=== PATIENT | male | born 1990 | race Caucasian/White ===

== ENCOUNTER 2020-06-21 07:49 | Emergency (ER) | payer SELFPAY ==
[2020-06-21 08:16] LABS: #Eosinphils 0.1 thou/uL (0.0-0.7); #Lymphocytes 0.9 thou/uL (1.20-3.40); #Monocytes 0.7 thou/uL (0.11-0.59); %Eosinophils 0.6 % (0.0-10.0); %Lymphocytes 6.5 % (21.0-51.0); %Monocytes 4.8 % (0.0-10.0); %Neutrophils 88.1 % (42.0-75.0); Hemoglobin 17.2 g/dL (14.0-18.0); Mean Corpuscular HGB CONC 32.3 g/dL (32.0-36.0); Mean Corpuscular Hemoglobin 30.8 pg (27.0-31.0); Mean Corpuscular Volume 95.4 fL (78.0-98.0); Mean Platelet Volume 6.6 fL (7.4-10.4); Platelet Count 316 thou/uL (130-400); RBC Distribution Width 11.5 % (11.5-14.5); Red Blood Cell (RBC) Count 5.59 mill/uL (4.70-6.10); White Blood Cell (WBC) Count 13.6 thou/uL (4.8-10.8)
[2020-06-21] MEDS ORDERED: Ketorolac Tromethamine 30 MG/ML VIAL ONE (08:37)
[2020-06-21] MEDS ORDERED: Dexamethasone 10 MG/ML VIAL ONE (08:37)
[2020-06-21 08:45] LABS: ALT (SGPT) 29 U/L (8-55); AST (SGOT) 27 U/L (5-34); Albumin 4.4 g/dL (3.5-5.0); Alkaline Phosphatase 125 U/L (40-110); Anion Gap 13 mmol/L (10-20); BUN (Urea Nitrogen) 9 mg/dL (8.9-20.6); Bilirubin, Total 1.1 mg/dL (0.2-1.2); Calc. Creatinine Clearance 0 mL/min (70-130); Calcium 9.5 mg/dL (7.8-10.44); Carbon Dioxide 26 mmol/L (22-29); Chloride 100 mmol/L (98-107); Estimated GFR-MDRD Greater than 90; Globulin 2.9 g/dL (2.4-3.5); Glucose 137 mg/dL (70-105); Potassium 4.1 mmol/L (3.5-5.1); Protein, Total 7.3 g/dL (6.0-8.3); Sodium 135 mmol/L (136-145)
[2020-06-21] MEDS ORDERED: cefTRIAXone\\ROCEPHIN 1 GM VIAL ONE (09:08)
--- NOTE | 2020-06-21 09:10 | CT ---
EXAM: CT neck with contrast HISTORY: Neck mass COMPARISON: None TECHNIQUE: Multiple contiguous axial images were obtained and a CT of the neck with contrast. Sagitta l and coronal reformats were performed. FINDINGS: There is bilateral adenoid and palatine tonsillar hypertrophy. There is a 1.8 cm left palatine tonsil lar fluid collection. No prevertebral soft tissue swelling or fluid collection is seen. Multiple reactive bilateral mildly enlarged lymph nodes are seen. The salivary glands are symmetric without focal abnormality. The thyroid is unremarkable. No osseous abnormality is seen in the cervical spine. The visualized intracranial structures are unremarkable. The lung apices are unremarkable. IMPRESSION: Left palatine tonsillar/peritonsillar abscess.
[2020-06-21] MEDS ORDERED: Lidocaine 1% w/Epinephrine 1:100K 20 ML VIAL ONE (09:16)
[2020-06-21] MEDS ORDERED: Iopamidol-370 76% 500 ML 1 ML ONE (11:32)
== END 2020-06-21 09:46 | disposition home or self-care (01) ==
LOC: ERS 07:49
DX: J36 Peritonsillar abscess (principal); F41.9 Anxiety disorder, unspecified; F31.9 Bipolar disorder, unspecified; F17.210 Nicotine dependence, cigarettes, uncomplicated
CPT/HCPCS: 36415; 42700; 70491; 80053; 85025; 87430; 96361; 96365; 96375; J0696; J1100; J1885; Q9967

== ENCOUNTER 2020-11-06 12:33 | Emergency (ER) | payer SELFPAY | END 2020-11-06 14:18 | disposition left against medical advice (07) | LOC: ERS 12:33 | DX: Z53.21 Procedure and treatment not carried out due to patient leaving prior to being seen by health care provider (principal) ==

== ENCOUNTER 2022-04-03 19:12 | Emergency (ER) | payer OTHER, SELFPAY ==
[2022-04-03] MEDS ORDERED: Lidocaine 1% PF 5 ML VIAL ONE (19:43)
[2022-04-03] MEDS ORDERED: Boostrix 0.5 ML (Tdap) VIAL (>/=7 yrs of age) ONE (20:27)
== END 2022-04-03 20:31 ==
LOC: ERS 19:12
DX: S61.211A Laceration without foreign body of left index finger without damage to nail, initial encounter (principal); W26.0XXA Contact with knife, initial encounter; F17.210 Nicotine dependence, cigarettes, uncomplicated
CPT/HCPCS: 12001; 90471; 90715